=== PATIENT | female | born 1940 | race Caucasian/White ===

== ENCOUNTER → 2022-01-20 | Outpatient (CLI) | payer MEDICARE ==
--- NOTE | 2022-01-20 14:56 | Diagnostic Imaging Report ---
INDICATION: Pain. 3 views were obtained FINDINGS: There is moderate 3 compartment osteoarthritic change. No fracture or dislocation. No joint effusion. Soft tissues are unremarkable. IMPRESSION: Moderately severe 3 compartment osteoarthritic change. Dictated by: Dictated on workstation # [id number]
--- NOTE | 2022-01-20 15:21 | Diagnostic Imaging Report ---
INDICATION: Left hip pain. EXAMINATION: Left hip/pelvis, 3 views. FINDINGS: The AP pelvis shows the SI joints to be symmetrical with mild sclerotic hypertrophic bony change. The femoral heads are in normal articulation bilaterally. Two views of the left hip show mild narrowing of the joint space with some hypertrophic changes along the acetabular rim. No hypertrophic changes in the femoral head. The femoral head shows smooth articulating surfaces. There are no fractures. No evidence of osteonecrosis. No soft tissue calcification about the hip noted. 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 Dictated by: Dictated on workstation # [id number]
== END ==
LOC: RAD FS 10:22
PROVIDERS: ATTEND Nurse Practitioner
DX: M16.12 Unilateral primary osteoarthritis, left hip (principal); M17.12 Unilateral primary osteoarthritis, left knee
CPT/HCPCS: 73502; 73562